=== PATIENT | female | born 1970 | race American Indian/Alaskan Native ===

== ENCOUNTER 2018-09-24 13:47 | Outpatient (CLI) | payer MEDICARE, BC | END 2018-09-24 13:48 | disposition home or self-care (01) | LOC: RAD 13:47 ==

== ENCOUNTER 2018-10-09 08:56 | Outpatient (CLI) | payer MEDICARE, BC | END 2018-10-09 08:57 | disposition home or self-care (01) | LOC: RAD 08:56 ==